=== PATIENT | male | born 1995 | race Caucasian/White ===

== ENCOUNTER 2021-02-02 20:43 | Observation (INO) ==
[2021-02-02] MEDS ORDERED: FAMOTIDINE 20MG/5ML IV PUSH IV STA (22:07)
[2021-02-02] MEDS ORDERED: SODIUM CHLORIDE 0.9% 1000ML 1,000 ML IV STA (22:07)
[2021-02-02] MEDS ORDERED: GI COCKTAIL ED USE PO ONE (22:07)
[2021-02-02 22:29] LABS: Basophils # (auto) 0.02 K/uL (0-0.2); Basophils % (auto) 0.1 %; Eosinophils # (auto) 0.07 K/uL (0-0.5); Eosinophils % (auto) 0.4 %; Hematocrit (blood only) 42.9 % (42-52); Hemoglobin 15.4 g/dL (14.0-18.0); Immature Granulocytes # (auto) 0.04 K/uL (0.00-0.02); Immature Granulocytes % (auto) 0.2 %; Lymphocytes # (auto) 1.18 K/uL (1.2-3.4); Lymphocytes % (auto) 6.9 %; Mean Corpuscular Hemoglobin 30.7 pg (25-34); Mean Corpuscular Hgb Conc 35.9 g/dL (32-36); Mean Corpuscular Volume 85.6 fL (80-100); Mean Platelet Volume 8.5 fL (7.4-10.4); Monocytes # (auto) 0.74 K/uL (0.11-0.59); Monocytes % (auto) 4.3 %; Neutrophils # (auto) 15.15 K/uL (1.4-6.5); Neutrophils % (auto) 88.1 %; Platelet Count 242 K/uL (130-400); RDW Coefficient of Variation 12.5 % (11.5-14.5); RDW Standard Deviation 38.8 fL (36.4-46.3); Red Blood Count 5.01 M/uL (4.7-6.1)
[2021-02-02 22:55] LABS: Albumin Level 4.2 gm/dl (3.4-5.0); BUN Creatinine Ratio 11.9 (10-20); Calcium 9.2 mg/dl (8.5-10.1); Creatinine Clr Calc Pharmacy 155.1 ml/min; Est GFR (African American) 131.9 ml/min; Est GFR (Non-African American) 113.8 ml/min; Potassium 3.7 mmol/L (3.5-5.1)
[2021-02-02 22:58] LABS: Albumin Globulin Ratio 1.2 (0.9-2); Bilirubin,Total 0.3 mg/dl (0.2-1); Globulin 3.4 gm/dl (2.5-4.0); Total Protein 7.6 gm/dl (6.4-8.2)
[2021-02-02 23:23] LABS: Appearance Urine Clear (Clear); Bilirubin Urine Negative (Negative); Blood Urine Negative (Negative); Color Urine Yellow; Glucose Urine UA Negative (Negative); Ketones Urine Negative (Negative); Leukocyte Esterase Urine Negative (Negative); Nitrite Urine Negative (Negative); Protein Urine Negative (Negative); Specific Gravity Urine 1.022 (1.000-1.030); Urobilinogen Urine Negative (Negative); pH Urine 7.5 (4.5-7.5)
[2021-02-03] MEDS ORDERED: OPTIRAY 320 100ml IV ONE (00:10)
[2021-02-03] MEDS ORDERED: cefOXitin 2,000 MG/60 ML BAG IV STA (01:21)
--- NOTE | 2021-02-03 01:21 | Emergency Department Note ---
History of Present Illness General Chief complaint: Abdominal Pain Stated complaint: ABDOMINAL PAIN Time Seen by Provider: 02/02/21 21:44 History of Present Illness Maximum Pain Intensity: 8 This 25-year-old presents to the ER complaining of abdominal pain Location: Mid abdomen Quality: Discomfort Severity: Moderate Duration: Today Timing: Today Context: Patient was concerned and came in Modifying factors: better with rest; worse with activity Patient denies chest pain, dyspnea, vomiting, diarrhea, urinary symptoms. Home Medications Medication Instructions Recorded Confirmed Type ibuprofen 200 mg tablet (Advil) 200 mg PO Q6H PRN 02/02/21 02/02/21 History omeprazole magnesium 20 mg 20 mg PO DAILY PRN 02/02/21 02/02/21 History tablet,delayed release (Prilosec OTC) Allergies Allergy/AdvReac Type Severity Reaction Status Date / Time Penicillins Allergy family Verified 02/02/21 23:29 history Past Med/Surg History Medical History No acute medical problems Surgical History No pertinent past surgical history Social History Smoking Status: Current every day smoker Tobacco Type: Cigarettes and E-cigarettes / Vaping Feels Safe at Home: Yes Review of Systems A total of 10 systems reviewed and were otherwise negative Physical Exam Vital Signs Vital Signs - 24 hr 02/02/21 20:45 02/02/21 21:56 02/02/21 23:20 Temperature 36.8 C Temperature Source Temporal Artery Scan Pulse Rate 99 H Pulse Rate [Left Brachial] 88 Respiratory Rate 18 20 20 Respiratory Effort / Characteristics Non-Labored Spontaneous Non-Labored Respiratory Depth Normal Normal Respiratory Pattern Regular Blood Pressure 126/68 Blood Pressure [Right Arm] 150/99 H 133/80 Blood Pressure Mean 87 Blood Pressure Mean [Right Arm] 116 97 Blood Pressure Position Sitting Blood Pressure Position [Right Arm] Left Lateral Pulse Oximetry 93 98 98 Oxygen Delivery Method Room Air Room Air Room Air Sepsis Recent Fever Within 48 Hours No Sepsis New/Unexplained Change in Mental Status No Sepsis Action Taken by Nursing No Action Required 02/02/21 23:22 Temperature Temperature Source Pulse Rate 88 Pulse Rate [Left Brachial] Respiratory Rate 20 Respiratory Effort / Characteristics Respiratory Depth Respiratory Pattern Blood Pressure Blood Pressure [Right Arm] Blood Pressure Mean Blood Pressure Mean [Right Arm] Blood Pressure Position Blood Pressure Position [Right Arm] Pulse Oximetry 98 Oxygen Delivery Method Room Air Sepsis Recent Fever Within 48 Hours Sepsis New/Unexplained Change in Mental Status Sepsis Action Taken by Nursing VITALS: Vitals are noted on the nurse's note and reviewed by myself. Vital signs stable. GENERAL: Pleasant male, in no acute distress, nondiaphoretic, well-developed well-nourished. SKIN: Capillary reflex less than 2 seconds. HEENT: Normocephalic. PERRLA. EOMI. Nares patent. Mucous membranes moist. Neck is supple without nuchal rigidity. HEART: Regular rate and rhythm without murmurs gallops or rubs. LUNGS: Clear to auscultation bilaterally without wheezes, rales or rhonchi. No retractions or accessory muscle use. ABDOMEN: Positive bowel sounds x 4. Normal tympanic percussion. Soft, tender to palpation periumbilical, without masses or organomegaly. Schaffer sign negative. No guarding or rebound tenderness. No CVA tenderness MUSCULOSKELETAL: No gross musculoskeletal defects. NEURO: Patient was alert and oriented to person place and time. No focal neurological deficits. Course Administered Medications Discontinued Medications Al Hydrox/Mg Hydrox/Simethicone (Gi Cocktail Ed Use) 1 dose PO ONE ONE Stop: 02/02/21 22:08 Last Admin: 02/02/21 22:38 Dose: 1 dose Documented by: [id number] Famotidine (Famotidine 20mg/5ml Iv Push) 20 mg IV ONE STA Stop: 02/02/21 22:08 Last Admin: 02/02/21 22:38 Dose: 20 mg Documented by: [id number] Sodium Chloride (Nss 1000ml) 1,000 mls @ 999 mls/hr IV .Q1H1M STA Stop: 02/02/21 23:07 Last Admin: 02/02/21 22:38 Dose: 999 mls/hr Documented by: [id number] Ioversol (Optiray 320 100ml) 100 ml IV ONCE ONE Stop: 02/03/21 00:11 Last Admin: 02/03/21 00:10 Dose: 93 ml Documented by: [id number] Medical Decision Making Medical Records Attestation: I reviewed the patient's medical records. Home Medications Current Medication List: was personally reviewed by me Laboratory Data Attestation: I reviewed the patient's lab results. Result diagrams: 02/02/21 22:17 02/02/21 22:17 Lab Results 02/02/21 02/02/21 02/02/21 Range/Units 22:17 22:17 23:18 WBC 17.20 H (4.8-10.8) K/uL RBC 5.01 (4.7-6.1) M/uL Hgb 15.4 (14.0-18.0) g/dL Hct 42.9 (42-52) % MCV 85.6 (80-100) fL MCH 30.7 (25-34) pg MCHC 35.9 (32-36) g/dL RDW Std Deviation 38.8 (36.4-46.3) fL RDW Coeff of Sly 12.5 (11.5-14.5) % Plt Count 242 (130-400) K/uL MPV 8.5 (7.4-10.4) fL Immature Gran % (Auto) 0.2 % Neut % (Auto) 88.1 % Lymph % (Auto) 6.9 % [place] % (Auto) 4.3 % Eos % (Auto) 0.4 % Baso % (Auto) 0.1 % Neut # (Auto) 15.15 H (1.4-6.5) K/uL Lymph # (Auto) 1.18 L (1.2-3.4) K/uL [place] # (Auto) 0.74 H (0.11-0.59) K/uL Eos # (Auto) 0.07 (0-0.5) K/uL Baso # (Auto) 0.02 (0-0.2) K/uL Immature Gran # (Auto) 0.04 H (0.00-0.02) K/uL Sodium 140 (136-145) mmol/L Potassium 3.7 (3.5-5.1) mmol/L Chloride 105 (98-107) mmol/L Carbon Dioxide 27 (21-32) mmol/L Anion Gap 8.0 (3-11) BUN 11 (7-18) mg/dl Creatinine 0.94 (0.6-1.4) mg/dl Est Cr Clr Drug Dosing 155.1 ml/min Est GFR ( Amer) 131.9 ml/min Est GFR (Non-Af Amer) 113.8 ml/min BUN/Creatinine Ratio 11.9 (10-20) Glucose 110 H (70-99) mg/dl Calcium 9.2 (8.5-10.1) mg/dl Total Bilirubin 0.3 (0.2-1) mg/dl AST 33 (15-37) U/L ALT 96 H (12-78) U/L Alkaline Phosphatase 62 (45-117) U/L Total Protein 7.6 (6.4-8.2) gm/dl Albumin 4.2 (3.4-5.0) gm/dl Globulin 3.4 (2.5-4.0) gm/dl Albumin/Globulin Ratio 1.2 (0.9-2) Lipase 95 (73-393) U/L Urine Color Yellow Urine Appearance Clear (Clear) Urine pH 7.5 (4.5-7.5) Ur Specific [place] 1.022 (1.000-1.030) Urine Protein Negative (Negative) Urine Glucose (UA) Negative (Negative) Urine Ketones Negative (Negative) Urine Blood Negative (Negative) Urine Nitrite Negative (Negative) Urine Bilirubin Negative (Negative) Urine Urobilinogen Negative (Negative) Ur Leukocyte Esterase Negative (Negative) COVID-19 Eval Order 02/03/21 Range/Units 01:50 WBC (4.8-10.8) K/uL RBC (4.7-6.1) M/uL Hgb (14.0-18.0) g/dL Hct (42-52) % MCV (80-100) fL MCH (25-34) pg MCHC (32-36) g/dL RDW Std Deviation (36.4-46.3) fL RDW Coeff of Sly (11.5-14.5) % Plt Count (130-400) K/uL MPV (7.4-10.4) fL Immature Gran % (Auto) % Neut % (Auto) % Lymph % (Auto) % [place] % (Auto) % Eos % (Auto) % Baso % (Auto) % Neut # (Auto) (1.4-6.5) K/uL Lymph # (Auto) (1.2-3.4) K/uL [place] # (Auto) (0.11-0.59) K/uL Eos # (Auto) (0-0.5) K/uL Baso # (Auto) (0-0.2) K/uL Immature Gran # (Auto) (0.00-0.02) K/uL Sodium (136-145) mmol/L Potassium (3.5-5.1) mmol/L Chloride (98-107) mmol/L Carbon Dioxide (21-32) mmol/L Anion Gap (3-11) BUN (7-18) mg/dl Creatinine (0.6-1.4) mg/dl Est Cr Clr Drug Dosing ml/min Est GFR ( Amer) ml/min Est GFR (Non-Af Amer) ml/min BUN/Creatinine Ratio (10-20) Glucose (70-99) mg/dl Calcium (8.5-10.1) mg/dl Total Bilirubin (0.2-1) mg/dl AST (15-37) U/L ALT (12-78) U/L Alkaline Phosphatase (45-117) U/L Total Protein (6.4-8.2) gm/dl Albumin (3.4-5.0) gm/dl Globulin (2.5-4.0) gm/dl Albumin/Globulin Ratio (0.9-2) Lipase (73-393) U/L Urine Color Urine Appearance (Clear) Urine pH (4.5-7.5) Ur Specific [place] (1.000-1.030) Urine Protein (Negative) Urine Glucose (UA) (Negative) Urine Ketones (Negative) Urine Blood (Negative) Urine Nitrite (Negative) Urine Bilirubin (Negative) Urine Urobilinogen (Negative) Ur Leukocyte Esterase (Negative) COVID-19 Eval Order Covid19 at [facility] Imaging Data Attestation: I personally reviewed and interpreted this imaging study as follows: MDM Narrative Prior records/ancillary studies reviewed. Triage Nursing notes reviewed. Additional history obtained from nursing. The patient's history was concerning for abdominal pain. Differential diagnosis: Etiologies such as appendicitis, diverticulitis, PUD, biliary pathology, UTI, pancreatitis, obstruction, mesenteric ischemia, aortic pathology, infections, inflammatory bowel disease, renal colic, as well as others were entertained. Physical examination findings: As above. ER treatment provided: An order was placed for continuous cardiac monitoring. The monitor shows a rate of 60-100 with a sinus rhythm. GI cocktail, Pepcid, IV fluids, Mefoxin On reassessment the patient felt better. Diagnostics interpreted by me: The labs revealed leukocytosis Imaging studies: CT ABDOMEN & PELVIS With Contrast: Thickened proximal appendix measuring up to 9-10 mmwith mild adjacent stranding. Correlate clinicallyregarding earlyappendicitis. No fluid collection or free air. Areas of mild small and large bowel wall thickening or underdistention. Enterocolitis is not excluded in the appropriate clinical setting. Mildlythickened underdistended bladder. Mild hepatosplenomegaly. Possible fattyliver. Small mesenteric and retroperitoneal lymph nodes. Small fat-containing umbilical and inguinal hernias. Small hiatal hernia. Radiologist: Maranda Sullivan M.D Consultation: A consultation was placed with the surgeon Dr. Alonzo. The case was discussed and diagnostics were reviewed. The patient was evaluated in the ER for further treatment. Exam and history seem consistent with acute appendicitis. Patient was placed on antibiotics. He was NPO. Surgery was consulted. He will be evaluated. By the evaluation outlined above emergent etiologies such as diverticulitis, PUD, biliary pathology, UTI, pancreatitis, obstruction, mesenteric ischemia, aortic pathology, inflammatory bowel disease, renal colic, as well as others were deemed relatively unlikely. The pt informed about the findings as listed above. All questions were answered and pleased with the treatment. The chart was completed utilizing [employer] Speech voice recognition software. Grammatical errors, random word insertions, pronoun errors, and incomplete sentences are an occassional consequence of this system due to software limitations, ambient noise, and hardware issues. Any formal questions or c oncerns about the content, text, or information contained within the body of this dictation should be directly addressed to the physician assistant professor in family studies for clarification. Impression & Plan Acute appendicitis Discharge Plan Visit Data Chief Complaint: Abdominal Pain Stated Complaint: ABDOMINAL PAIN ED Provider: Bill Wild ED Midlevel Provider: Tanisha Craft Discharge Problem: Acute appendicitis Patient Disposition: Admitted As Inpatient Condition: Good Forms Stand Alone Forms: [facility] Prescriptions Prescriptions: No Action ibuprofen [Advil] 200 mg Tablet 200 mg PO Q6H PRN (Reason: Pain) RF: 0 omeprazole magnesium [Prilosec OTC] 20 mg Tablet,Delayed Release (Dr/Ec) 20 mg PO DAILY PRN (Reason: Acid Reflux) RF: 0 Referrals Referrals: PCP,NO [Primary Care Provider] - Discharge Problem: Acute appendicitis Qualifiers: Acute appendicitis type: with localized peritonitis Appendicitis gangrene presence: without gangrene Appendicitis perforation presence: without perforation Appendicitis abscess presence: without abscess Qualified Code(s): K35.30 - Acute appendicitis with localized peritonitis, without perforation or gangrene
--- NOTE | 2021-02-03 02:02 | Surgery Consultation ---
Date of Consultation February 03, 2021 Assessment & Plan (1) Acute appendicitis: pt is a 25 year-old male who presents to Er with abdominal pain, IMP: acute appendicitis, Plan, I recommend to do laparoscopic appendectomy, possible open, D/W benefits, risks and alternatives of the surgery, the risks - infection, bleeding, injury other organs, abscess, incisional hernia, pt understood, he agrees with the surgery, he signed informed consent, I answered all questions, pre-op antibiotic, Present on Admission?: Yes History of Present Illness Reason for Consultation: acute appendicitis Requesting Physician: ELÍAS perales History of Present Illness CC: abdominal pain HPI: pt is a 25 year-old male who presents to ER with 2 weeks history RLQ pain, the pain is 6/10, with nausea, no vomiting, pt feels the pain is getting today, pt denies diarrhea, no fever, pt had Ct scan diagnosis- acute appendicitis, WBC 17,000. otherwise pt is healthy, Allergies Allergy/AdvReac Type Severity Reaction Status Date / Time Penicillins Allergy family Verified 02/02/21 23:29 history Home Medications Medication Instructions Recorded Confirmed Type ibuprofen 200 mg tablet (Advil) 200 mg PO Q6H PRN 02/02/21 02/02/21 History omeprazole magnesium 20 mg 20 mg PO DAILY PRN 02/02/21 02/02/21 History tablet,delayed release (Prilosec OTC) Patient History Medical History No acute medical problems Surgical History No pertinent past surgical history Social History Smoking Status: Current every day smoker Tobacco Type: Cigarettes and E-cigarettes / Vaping Feels Safe at Home: Yes Review of Systems Constitutional: as per Subjective / HPI Eyes: as per Subjective / HPI Respiratory: as per Subjective / HPI and + problem reported (smoking) Cardiovascular: as per Subjective / HPI Gastrointestinal: as per Subjective / HPI Genitourinary: + as per Subjective / HPI Musculoskeletal: as per Subjective / HPI Neurologic: as per Subjective / HPI Psychiatric: as per Subjective / HPI Endocrine: as per Subjective / HPI Hematologic / Lymphatic: as per Subjective / HPI Physical Exam Constitutional: WD/WN, vitals as above Eyes: PERRL, conjunctivae normal, anicteric sclerae Neck: trachea midline, no thyromegaly Respiratory: normal respiratory effort, lungs clear to auscultation Cardiovascular: RRR, no murmur, no edema Gastrointestinal (Abdomen): soft, tenderness at RLQ, no rebound pain, no distend, BS +, no significant bulging or tenderness at umbilical and bilateral inguinal area, Musculoskeletal: no cyanosis or clubbing, extremities motor strength 5/5 Neurologic: patellar DTR's 2+ bilat, sensation intact Psychiatric: A+Ox3, euthymic affect Results & Data ([facility]) Vital Signs (Past 12 Hours) Vital Signs Temp Pulse Pulse Resp BP BP Pulse Ox 02/02/21 23:22 88 20 98 02/02/21 23:20 88 20 133/80 98 02/02/21 21:56 20 150/99 H 98 02/02/21 20:45 36.8 C 99 H 18 126/68 93 Laboratory Results Abnormal lab results 02/02/21 02/02/21 Range/Units 22:17 22:17 WBC 17.20 H (4.8-10.8) K/uL Neut # (Auto) 15.15 H (1.4-6.5) K/uL Lymph # (Auto) 1.18 L (1.2-3.4) K/uL [place] # (Auto) 0.74 H (0.11-0.59) K/uL Immature Gran # (Auto) 0.04 H (0.00-0.02) K/uL Glucose 110 H (70-99) mg/dl ALT 96 H (12-78) U/L Diagnostic Findings CT scan- acute appendicitis, small fat contain, umbilical hernia, inguinal hernia, hiatal hernia, (1) Acute appendicitis Acute appendicitis type: with localized peritonitis Appendicitis abscess pres ence: without abscess Appendicitis gangrene presence: without gangrene Appendicitis perforation presence: without perforation Qualified Code(s): K35.30 - Acute appendicitis with localized peritonitis, without perforation or gangrene
--- NOTE | 2021-02-03 02:18 | History & Physical Bridge Note ---
Date of Service February 03, 2021 History & Physical Bridge Note I have examined the patient, reviewed the History & Physical and in the interval since the performance of the History & Physical I have noted the following changes of clinical significance: no changes noted
[2021-02-03] MEDS ORDERED: fentaNYL citrate 100 MCG/2 ML VIAL ONE (03:31)
[2021-02-03] MEDS ORDERED: BACITRACIN OINT 15 GM TUBE ONE (04:12)
[2021-02-03] MEDS ORDERED: BUPIVACAINE 0.5 % 5 MG/1 ML MPF 30ML VIAL ONE (04:12)
[2021-02-03] MEDS ORDERED: LIDOCAINE 1% LOCAL 20 ML VIAL ONE (04:12)
[2021-02-03] MEDS ORDERED: LABETALOL HCL IV 5 MG/ML 20ML IV PRN (04:46)
[2021-02-03] MEDS ORDERED: ePHEDrine sulfate 50 MG/ML AMP IV PRN (04:46)
[2021-02-03] MEDS ORDERED: ATROPINE SULFATE 0.1 MG/ML 10ML SYR IV PRN (04:46)
[2021-02-03] MEDS ORDERED: fentaNYL citrate 100 MCG/2 ML VIAL IV PRN (04:46)
[2021-02-03] MEDS ORDERED: PHENYLEPHRINE 100MCG/ML 5ML SYR IV PRN (04:46)
[2021-02-03] MEDS ORDERED: ONDANSETRON INJ 2 MG/ML 2 ML VIAL IV PRN ×2 (04:46→05:47)
[2021-02-03] MEDS ORDERED: HYDROmorphone INJ 1 MG/ML SYRINGE IV PRN (04:46)
--- NOTE | 2021-02-03 04:48 | Anesthesiology Consultation ---
Date of Service February 03, 2021 Assessment & Plan (1) Encounter for pre-operative examination: Chart Review Chart Review: Acceptable Risk for Surgery and Patient NOT seen in Pre Admission Testing Consults Requested none Proposed Anesthesia Anesthesia Type: General History Surgery Operation Date: 02/03/21 04:00 Proposed Procedures p Laparoscopic Appendectomy - Cali Alonzo MD Height/Weight Height: 5 ft 11 in Weight: 111.4 kg Allergies Allergy/AdvReac Type Severity Reaction Status Date / Time Penicillins Allergy family Verified 02/02/21 23:29 history Medications Home Medications Medication Instructions Recorded Confirmed Last Taken ibuprofen 200 mg tablet (Advil) 200 mg PO Q6H PRN 02/02/21 02/02/21 Unknown omeprazole magnesium 20 mg 20 mg PO DAILY PRN 02/02/21 02/02/21 Unknown tablet,delayed release (Prilosec OTC) NPO Date Last Intake of Fluids: 02/02/21 Time Last Intake of Fluids: 21:00 Date Last Intake of Solids: 02/02/21 Time Last Intake of Solids: 16:00 Past Medical History Medical History (Updated 02/03/21 @ 04:49 by Tomer Mason MD) GERD (gastroesophageal reflux disease) Obesity Past Surgical History Surgical History No pertinent past surgical history Social History Smoking Status: Current every day smoker Physical Exam Vital Signs Last Vital Signs Temp 36.8 C 02/02/21 20:45 Pulse 88 02/03/21 04:19 Resp 20 02/03/21 04:19 BP 115/73 02/03/21 04:19 Pulse Ox 97 02/03/21 04:19 Testing Laboratory Results 02/02/21 22:17 02/02/21 22:17 Urine Color Yellow 02/02/21 23:18 Urine Appearance Clear (Clear) 02/02/21 23:18 Urine pH 7.5 (4.5-7.5) 02/02/21 23:18 Ur Specific [place] 1.022 (1.000-1.030) 02/02/21 23:18 Urine Protein Negative (Negative) 02/02/21 23:18 Urine Glucose (UA) Negative (Negative) 02/02/21 23:18 Urine Ketones Negative (Negative) 02/02/21 23:18 Urine Nitrite Negative (Negative) 02/02/21 23:18 Ur Leukocyte Esterase Negative (Negative) 02/02/21 23:18
[2021-02-03] MEDS ORDERED: PROPOFOL IV EMULSION 10 MG/ML 20 ML VIAL IV ONE (05:18)
[2021-02-03] MEDS ORDERED: LIDOCAINE 2% 2 ML VIAL/AMP(20MG/ML) INFIL ONE (05:18)
[2021-02-03] MEDS ORDERED: ROCURONIUM BROMIDE 10 MG/ML 5 ML VIAL IV ONE (05:18)
[2021-02-03] MEDS ORDERED: ONDANSETRON INJ 2 MG/ML 2 ML VIAL ONE ×2 (05:18)
[2021-02-03] MEDS ORDERED: DEXAMETHASONE SOD INJ 4 MG/ML VIAL ONE (05:18)
[2021-02-03] MEDS ORDERED: GLYCOPYRROLATE 0.2 MG/ML VIAL ONE (05:19)
[2021-02-03] MEDS ORDERED: NEOSTIGMINE METHYLSULFATE 1 MG/ML 10ML VIAL ONE (05:19)
[2021-02-03] MEDS ORDERED: SUCCINYLCHOLINE CHLORIDE 20 MG/ML 10 ML VIAL IV ONE (05:19)
[2021-02-03] MEDS ORDERED: ESMOLOL HCL INJ 10 MG/ML 10ML VIAL IV ONE (05:19)
[2021-02-03] MEDS ORDERED: KETOROLAC 30 MG/ML VIAL ONE (05:29)
--- NOTE | 2021-02-03 05:43 | Post Operative Brief Note ---
Immediate Post Op Note v1 Date of Surgery February 03, 2021 Pre & Post Diagnosis Operation Date: 02/03/21 04:00 Pre-Op Diagnosis: Acute appendicitis Post-Op Diagnosis: Acute appendicitis I identified the patient and participated in the time-out.: Yes Procedure Operation Date: 02/03/21 04:00 Actual Procedures p Laparoscopic Appendectomy(Not Applicable) - Cali Alonzo MD Surgeon Cali Alonzo MD Communication Spec rn surgical Estimated Blood Loss 10 Findings Consistent with Post-Op Diagnosis acute appendicitis Fluids 1000ml Specimens appendix Anesthesia Type General Complications none Disposition Accompanied Patient To Recovery: Yes
[2021-02-03] MEDS: MEPERIDINE HCL 25 MG/ML CARP/VIAL IV PRN ×2 (05:59→06:05)
--- NOTE | 2021-02-03 06:18 | Anesthesiology Progress Note ---
Date of Service February 03, 2021 Anesthesia Post Procedure Vital Signs Vital Signs: Temp Pulse Pulse Resp BP BP Pulse Ox 02/03/21 05:53 36.4 C L 93 H 18 128/75 97 02/03/21 04:19 88 20 115/73 97 02/03/21 04:02 97 H 20 115/73 97 02/02/21 23:22 88 20 98 02/02/21 23:20 88 20 133/80 98 02/02/21 21:56 20 150/99 H 98 02/02/21 20:45 36.8 C 99 H 18 126/68 93 Pain Intensity Abdomen: Pain Intensity: 2 Transfer of Care Handoff Completed per policy Notes Mental Status: alert / awake / arousable Patient Amnestic to Procedure: Yes Nausea / Vomiting: adequately controlled Pain: adequately controlled Airway Patency, RR, SpO2: stable & adequate BP & HR: stable & adequate Hydration State: stable & adequate Anesthetic Complications: no major complications apparent and Pt Satisfied with anesthetic care
--- NOTE | 2021-02-03 06:18 | Operative Report (OR) ---
DATE OF PROCEDURE: 02/03/2021 PREOPERATIVE DIAGNOSIS: Acute appendicitis. POSTOPERATIVE DIAGNOSIS: Acute appendicitis. OPERATION: Laparoscopic appendectomy. SURGEON: Cali Alonzo MD ANESTHESIA: General. ESTIMATED BLOOD LOSS: About 10 mL. FINDINGS: Acute appendicitis. COMPLICATIONS: None. INDICATIONS FOR THE PROCEDURE: This is a 25-year-old gentleman who presented to ED with acute abdomi nal pain. The patient had a CT scan diagnosis of acute appendicitis. I recommended to do laparoscop ic appendectomy, possible open. I did talk to the patient about the benefit, risk, alternate procedu re. I indicated the risks may include, but not limited to, such as bleeding, infection, abscess, inj ury to other organs, incisional hernia. The patient understands. He signed informed consent and I a nswered all questions. DETAILS OF THE PROCEDURE: After we identified the patient and verified the procedure, we brought the patient to the OR, put the patient in the supine position on the OR table. The patient received SCD on bilateral legs to prevent DVT. Also, patient received 2 grams of cefoxitin IV for prophylactic a ntibiotic. The patient received general anesthesia without difficulty. His abdomen was prepped and draped in routine sterile fashion. After time-out, I injected local anesthesia by using 1% lidocaine mixed with 0.5% Marcaine just above the umbilicus, then made a small incision just above the umbilicus, opened fascia, opened peritoneum . Under direct vision, put a Teo trocar in, connected to CO2 to create pneumoperitoneum, flow rat e at 6 liters per minute, pressure not more than 14 mmHg. Once we get a nice pneumoperitoneum, we pu t a camera in, looked around the abdomen, it shows normal finding on the small bowel and large bowel; however, the appendix was significantly enlarged with inflammation, confirmed diagnosis of acute silvia endicitis. Once we confirmed the diagnosis, we put another two 5 mm trocars on the left lower quadra nt area, then we used the Harmonic to take down the appendix, rechecked, no active bleeding. Then, w e used a 45 mm Endo ARSEN stapler for transection on the base of the appendix, rechecked, the staple li ne intact and no active bleeding. Then, we removed the appendix through the catch bag. Then, we reinserted the Teo trocar in, connected to CO2 to create pneumoperitoneum, again looked a round the abdomen, no active bleeding, no leak from staple line. Then, we removed all trocars under direct vision. No active bleeding from the trocar site. Pneumoperitoneum was released, then I close d the umbilical incision fascial layer by using 0 Vicryl [id number] x2, closed subcutaneous laye r by using 2-0 Vicryl interruptedly, closed the skin by using 4-0 Vicryl continuous running, closed a nother two 5 mm trocar site of skin only by using 4-0 Vicryl. Then, we put the dressing on. The pat ient tolerated the procedure well. All instrument, needle and sponge counts were correct x2 at the e nd of the case. The patient was transferred to the recovery room in stable condition. The specimen was sent to pathology. After the procedure, I did talk to the patient about the OR finding and the p rocedure we did, the patient understands. Job ID: [id number]
[2021-02-03] MEDS ORDERED: oxyCODONE/ACETAMINOPHEN 5mg/325mg TAB PO PRN (06:47)
[2021-02-03] MEDS ORDERED: PANTOprazole 40 MG TAB PO PRN (06:47)
[2021-02-03] MEDS ORDERED: HYDROmorphone INJ 0.5 MG/0.5 ML SYR IV PRN (06:47)
[2021-02-03] MEDS ORDERED: IBUPROFEN 200 MG TAB PO PRN (06:47)
[2021-02-03] MEDS: LACTATED RINGER'S 1,000 ML IV SCH ×2 (07:51→14:27)
[2021-02-03] MEDS ORDERED: ACETAMINOPHEN 325 MG TAB PO PRN (08:11)
--- NOTE | 2021-02-03 08:14 | Discharge Summary ---
Date of Service February 03, 2021 Admission HPI Per Admitting Provider pt is a 25 year-old male who presents to ER with 2 weeks history RLQ pain, the pain is 6/10, with nausea, no vomiting, pt feels the pain is getting today, pt denies diarrhea, no fever, pt had Ct scan diagnosis- acute appendicitis, WBC 17,000. otherwise pt is healthy, Principal Diagnosis Acute appendicitis Discharge Exam Constitutional WD/WN, vitals as above no acute distress and not ill appearing Eyes + scleral abnormality (small hemorrhage in the sclera bilaterally more so on the right sclera) Respiratory normal respiratory effort; no respiratory distress, no labored breathing and no retractions Gastrointestinal (Abdomen) Inspection/Auscultation: abdomen normal to inspection; abdomen not distended Percussion/Palpation: + abdomen tender (at incision sites) and abdomen soft; no guarding and abdomen not rigid Skin no rashes, warm and dry + incision (clean/dry/intact dressings) Psychiatric Orientation: alert and oriented x 3 Discharge Data Allergies Allergy/AdvReac Type Severity Reaction Status Date / Time Penicillins Allergy family Verified 02/02/21 23:29 history Consultations 02/03/21 01:22 ED Decision to Admit Stat Procedures Performed Operation Date: 02/03/21 04:00 Actual Procedures p Laparoscopic Appendectomy(Not Applicable) - Cali Alonzo MD Ordered Studies 02/02/21 22:07 CT abd pelvis IV con only Urgent Hospital Course (1) Acute appendicitis: Patient was taken to operating room for laparoscopic appendectomy possible open. Patient found to have acute appendicitis. Patient tolerated procedure well without difficulty. Patient was transferred to recovery room and then to medical/surgical floor for postop care. Diet advance as tolerated, activity as tolerated, IV cefoxitin for postop antibiotics, PO Tylenol and Percocet prn pain. POD # 0, vitals stable, afebrile, pain mild at incisions and controlled, urinating without difficulty. Patient had some red bumps on eyes and noticed a hemorrhage on his right sclera. No other concerns. Patient tolerated diet well and ambulated hallway. Patient was discharged home in afternoon on POD # 0 in stable condition. Total Time Total Time Spent Total Time Spent (In Minutes): 20 Total Time Includes: Examination of the Patient, Discharge Planning and Medication Reconciliation Discharge Plan Discharge Items Patient Disposition: Home - Self-Care Reason For Visit: ACUTE APPENDICITIS Discharge Diagnosis: Acute appendicitis Condition on Discharge: Good Activity: Per Instructions section Non-emergency contact: Surgeon Call non-emergency contact if: you have any medication questions, your pain is worsening, your pain is concerning for you, you have a fever, your temperature is above 101, your wound has increased redness, your wound has increased drainage and your wound pain has increased Follow-up/Referrals: PCP,NO [Primary Care Provider] - Diet: Regular Addtl Attending Provider Instructions: Post-Surgical ~Discharge Instructions Activity Recommendations: - lifting limitation: (25 pounds for 4 weeks), - exercise/sex/sports limit: (nonstrenuous for 2 weeks), - driving or machine use limit: (none for 1 week or until no longer taking narcotic pain medication), - Shower/bathe limit: (september shower beginning Tuesday) Diet: - Resume previous diet SPECIAL CARE INSTRUCTIONS: - May shower on Tuesday. Sponge bath and wash hair in meantime. On Tuesday, remove outer dressings and shower. Let water run over area and pat dry. - Leave steri strips on for one week and then remove. They may fall off on their own that is okay. - Call the surgeon's office with any questions or concerns - - (ex. temperature higher than 101 degrees F, excessive bleeding or pain). MEDICATIONS: - Resume previous medications unless instructed otherwise by your surgeon. - You may alternate extra strength Tylenol and ibuprofen as needed for mild pain -650 mg Tylenol every 6 hours as needed - Ibuprofen 600 mg every 6 hours as needed (take with food) - Percocet 1 every 4 hours, as needed for moderate to severe pain - Recommend daily stool softener (Colace) while taking narcotic pain medication to prevent constipaton. FOLLOW UP VISIT: - If not already scheduled, please call the office to schedule a two week follow-up appointment. Office number Pending Studies at Discharge: Yes Stand-Alone Forms: My [employer], Work/School Release, Smoking Cessation Medications and DC Order Prescriptions: Continued ibuprofen [Advil] 200 mg Tablet 200 mg PO Q6H PRN (Reason: Pain) RF: 0 omeprazole magnesium [Prilosec OTC] 20 mg Tablet,Delayed Release (Dr/Ec) 20 mg PO DAILY PRN (Reason: Acid Reflux) RF: 0 Discharge Orders: Discharge Order (Routine); Ordered 02/03/21 Ordered By: Dary Reyes/Other Patient Handouts: DVT Post Op Prevention Admission Data Admit Date/Time: 02/03/21 05:48 Attending Provider: Cali Alonzo Admit Provider: Cali Alonzo Primary Care Provider: PCP,NO Other Providers: Cali Alonzo Other Interventions: Discharge Summary Assessment (RN) Last Done: 02/03/21 09:37
--- NOTE | 2021-02-03 09:58 | CT Scan Report ---
ABDOMEN AND PELVIS CT WITH IV CONTRAST CT DOSE: 1060.30 mGy.cm HISTORY: Acute right lower quadrant abdominal pain with nausea mid abd pain TECHNIQUE: Multiaxial CT images of the abdomen and pelvis were performed following the IV administrat ion of 93 cc of Optiray, A dose lowering technique was utilized adhering to the principles of ALARA. COMPARISON STUDY: None. FINDINGS: The imaged inferior cardiac chambers are unremarkable. Clear lung bases. No pneumatosis or pneumoperitoneum. The spleen is mildly enlarged, 14.6 cm. Hepatic steatosis. Patency of the hepatic a nd portal veins. Unremarkable gallbladder, pancreas and adrenal glands. Kidneys, prostate and urinary bladder are within normal limits. Aorta and IVC are unremarkable. There is no adenopathy. No bowel obstruction. The appendix is dilated and fluid-filled measuring up to 10 mm transversely dem onstrate mild wall thickening with periappendiceal inflammation. No drainable fluid collection or per foration. Unremarkable soft tissues. IMPRESSION: 1. Findings compatible with acute appendicitis. No drainable fluid collection or evidence of perforat ion. 2. No bowel obstruction. ACT 112: Negative or not required by law. The above report was generated using voice recognition software. It may contain grammatical, syntax o r spelling errors. Electronically signed by: Nikhil Soto M.D. 02/03/2021 9:57 AM
== END 2021-02-03 15:10 | disposition home or self-care (01) ==
LOC: ED 20:43 → OR 02-03 04:57 → 3W 02-03 04:57